=== PATIENT | female | born 1985 | race Caucasian/White ===

== ENCOUNTER 2017-12-20 23:55 | Emergency (ER) | payer OTHER | END 2017-12-21 01:50 | disposition home or self-care (01) | LOC: D.ER 23:55 | DX: S16.1XXA Strain of muscle, fascia and tendon at neck level, initial encounter (principal); V49.9XXA Car occupant (driver) (passenger) injured in unspecified traffic accident, initial encounter; Y93.89 Activity, other specified; Y92.410 Unspecified street and highway as the place of occurrence of the external cause; S29.012A Strain of muscle and tendon of back wall of thorax, initial encounter; S39.012A Strain of muscle, fascia and tendon of lower back, initial encounter; F17.200 Nicotine dependence, unspecified, uncomplicated; F12.90 Cannabis use, unspecified, uncomplicated ==

== ENCOUNTER → 2018-01-14 10:32 | Outpatient (CLI) | payer OTHER | END | disposition home or self-care (01) | LOC: D.CT 10:30 | DX: R55 Syncope and collapse (principal) ==

== ENCOUNTER 2018-03-08 10:53 | Emergency (ER) | payer OTHER ==
[~2018-03-08] VITALS: Ht 177.8 cm; Wt 77.3 kg
[2018-03-08 11:20] VITALS: Ht 177.8 cm; Wt 77.3 kg
[2018-03-08] MEDS ORDERED: IBUPROFEN800 MG PO (12:44)
[2018-03-08] MEDS ORDERED: KEFLEX500 MG PO (12:44)
[2018-03-08 13:01] VITALS: BP 112/72
== END 2018-03-08 13:01 | disposition home or self-care (01) ==
LOC: D.ER 10:53
DX: S80.01XA Contusion of right knee, initial encounter (principal); V19.9XXA Pedal cyclist (driver) (passenger) injured in unspecified traffic accident, initial encounter; Y93.89 Activity, other specified; Y92.019 Unspecified place in single-family (private) house as the place of occurrence of the external cause; M25.461 Effusion, right knee; S63.501A Unspecified sprain of right wrist, initial encounter; S60.512A Abrasion of left hand, initial encounter; S60.511A Abrasion of right hand, initial encounter; S80.211A Abrasion, right knee, initial encounter; F17.200 Nicotine dependence, unspecified, uncomplicated